=== PATIENT | male | born 1970 | race African-American/Black ===

== ENCOUNTER 2020-07-29 22:10 | Day surgery (SDCO) | payer OTHER ==
[2020-07-30 03:02] LABS: ALBUMIN 3.6 g/dL (3.4-5.0); BILIRUBIN - TOTAL 1.4 mg/dL (0.2-1.0); BUN/CREAT RATIO (CALC) 12.4 RATIO; CREATININE 0.89 mg/dL (0.67-1.17); GLOBULIN (CALCULATION) 4.4 g/dL; POTASSIUM 3.9 mmol/L (3.5-5.1)
[2020-07-30 03:04] LABS: LACTIC ACID 1.3 mmol/L (0.4-1.9)
[2020-07-30 03:10] LABS: BASOPHIL 0.1 % (0-2); EOSINOPHIL 0 % (0-5); HCT 39.5 % (42.0-52.0); HGB 12.2 g/dl (13.2-18.0); LYMPHOCYTE 8.5 % (15-48); MCH 24.2 pg (25.0-31.0); MCHC 30.9 g/dL (32.0-36.0); MCV 78.4 fL (78.0-100.0); MONOCYTE 3.7 % (0-12); MPV 9.2 fL (6.0-9.5); NEUTROPHIL 87.2 % (41-80); NRBC 0; PLT 312 K/uL (150-400); RBC 5.04 M/uL (4.70-6.00); RDW 15.9 % (11.5-14.0); WBC 13.5 K/uL (4.0-10.5)
[2020-07-30 03:33] LABS: BILIRUBIN NEGATIVE (NEGATIVE); BLOOD NEGATIVE Ery/uL (NEGATIVE); CLARITY CLEAR (CLEAR); COLOR YELLOW (YELLOW); GLUCOSE (U) NORMAL (NORMAL); LEUKOCYTES NEGATIVE Leu/uL (NEGATIVE); NITRITE NEGATIVE (NEGATIVE); PROTEIN NEGATIVE (NEGATIVE); UROBILINOGEN 0.2 mg/dL (0.2-1.0)
[2020-07-30] MEDS ORDERED: ZESTRIL2.5 MG PO (08:12)
[2020-07-31 10:08] LABS: BASOPHIL 0.4 % (0-2); EOSINOPHIL 1.5 % (0-5); HCT 35.7 % (42.0-52.0); LYMPHOCYTE 25.1 % (15-48); MCH 24.6 pg (25.0-31.0); MCHC 30.8 g/dL (32.0-36.0); MCV 79.7 fL (78.0-100.0); MONOCYTE 6.6 % (0-12); MPV 8.7 fL (6.0-9.5); NEUTROPHIL 66.3 % (41-80); NRBC 0; PLT 251 K/uL (150-400); RBC 4.48 M/uL (4.70-6.00)
[2020-07-31 10:27] LABS: ALBUMIN 3.2 g/dL (3.4-5.0); BILIRUBIN - TOTAL 1.1 mg/dL (0.2-1.0); BUN/CREAT RATIO (CALC) 15.6 RATIO; CREATININE 0.96 mg/dL (0.67-1.17); GLOBULIN (CALCULATION) 3.9 g/dL; MAGNESIUM 1.9 mg/dL (1.8-2.4); POTASSIUM 3.5 mmol/L (3.5-5.1); TOTAL PROTEIN 7.1 g/dL (6.4-8.2)
--- NOTE | 2020-07-31 14:26 | NUR ---
DISK GIVEN TO PATIENT WHEN SENT UP BY XRAY TODAY
--- NOTE | 2020-07-31 14:30 | NUR ---
PT. WANTS TO GO BACK TO HIS TRUCK WHICH IS [address]. HE REQUESTED A CAB TO TRANSPORT HIM BACK TO HIS TRUCK. CALLED THE [facility], THE COST WILL BE $50.00 TO TRANSPORT HIM. THEY WILL PICK HIM UP AT THE HOSPTIAL AT 2:35 P.M. PT STATED THAT HE WAS OK WITH THE COST OF THE CAB. ADVISED JODIE CARNEY OF THE ABOVE INFORMATION.
== END 2020-07-31 14:40 | disposition home or self-care (01) ==
LOC: FER 22:10 → FMS 07-30 06:28
PROVIDERS: Emergency Medicine Emergency Medical Services; Internal Medicine; ADMIT Hospitalist
DX: K56.600 Partial intestinal obstruction, unspecified as to cause (principal); K56.7 Ileus, unspecified; K80.20 Calculus of gallbladder without cholecystitis without obstruction; I10 Essential (primary) hypertension; D73.9 Disease of spleen, unspecified; E66.3 Overweight; Z68.41 Body mass index [BMI] 40.0-44.9, adult; Z85.038 Personal history of other malignant neoplasm of large intestine; Z79.899 Other long term (current) drug therapy; Z90.49 Acquired absence of other specified parts of digestive tract; Z20.822 Contact with and (suspected) exposure to COVID-19
CPT/HCPCS: 36415; 74019; 74250; 80053; 81003; 83605; 83690; 83735; 85025; C9113; G0378; J2270; J7030; Q9967; U0002